=== PATIENT | female | born 1930 | race Caucasian/White ===

== ENCOUNTER 2017-01-21 22:26 | Emergency (ER) | payer MEDICARE, OTHER ==
[~2017-01-21] VITALS: Ht 154.9 cm; Wt 63.6 kg
[2017-01-21 22:30] VITALS: TEMP 98.7
[2017-01-21] MEDS ORDERED: CELEXA40 MG PO (22:54)
[2017-01-21] MEDS ORDERED: LIPITOR 10MG10 MG PO (22:54)
[2017-01-21] MEDS ORDERED: PLAVIX 75MG TAB75 MG PO (22:55)
[2017-01-21] MEDS ORDERED: FOLIC ACID 11 MG/TA1 PO (22:56)
[2017-01-21] MEDS ORDERED: FLONASEALLERGY (22:56)
[2017-01-21] MEDS ORDERED: ATROVENT INHALE14 GM (22:57)
[2017-01-21] MEDS ORDERED: METHOTREXATE50/2 (22:59)
[2017-01-21] MEDS ORDERED: TOPROL XL 25MG25 MG PO (22:59)
[2017-01-21] MEDS ORDERED: REMICADE V100 MG/VIA (23:00)
[2017-01-21] MEDS ORDERED: RESTASIS 60VL (23:00)
[2017-01-21] MEDS ORDERED: DESYREL 50MG50 MG PO (23:01)
[2017-01-21] MEDS ORDERED: ASPIRIN E.C. 8181 MG PO (23:01)
[2017-01-21] MEDS ORDERED: AZULFIDINE ENT500 MG PO (23:01)
[2017-01-21] MEDS ORDERED: CITRACAL + D CA1 TAB PO (23:02)
[2017-01-21] MEDS ORDERED: ZYRTEC 10MG10 MG PO (23:02)
[2017-01-21] MEDS ORDERED: MULTI VITAMINS1 TAB PO (23:03)
[2017-01-21] MEDS ORDERED: FLORASTOR250 MG PO (23:03)
[2017-01-21] MEDS ORDERED: THE MEDICINE S200 M2 PO (23:03)
[2017-01-21] MEDS ORDERED: VITAMIN D31000 IU PO (23:04)
[2017-01-21] MEDS ORDERED: OCUVITE1 TA1 PO (23:04)
[2017-01-22] MEDS ORDERED: NORCO 325 MG-51 TAB PO (00:09)
[2017-01-22 00:30] VITALS: BP 132/62; PULSE 64
== END 2017-01-22 00:30 | disposition home or self-care (01) ==
LOC: COL.ER 22:26
DX: S62.307A Unspecified fracture of fifth metacarpal bone, left hand, initial encounter for closed fracture (principal); S09.90XA Unspecified injury of head, initial encounter; S19.9XXA Unspecified injury of neck, initial encounter; S70.02XA Contusion of left hip, initial encounter; I48.91 Unspecified atrial fibrillation; W18.09XA Striking against other object with subsequent fall, initial encounter; Y92.009 Unspecified place in unspecified non-institutional (private) residence as the place of occurrence of the external cause; Z91.81 History of falling; Z79.02 Long term (current) use of antithrombotics/antiplatelets

== ENCOUNTER 2018-08-03 15:04 | Inpatient (IN) | payer MEDICARE, OTHER ==
[~2018-08-03] VITALS: Ht 152.4 cm; Wt 69.7 kg
[~2018-08-03 15:04] MED LIST: ASPIRIN E.C. 8181 MG PO; ATROVENTNS0.03% NS; AZULFIDINE ENT500 MG PO; CELEXA40 MG PO; CITRACAL + D CA1 TAB PO; DESYREL 50MG50 MG PO; FLONASEALLERGY IH; FLORASTOR250 MG PO; FOLIC ACID 11 MG/TA1 PO; LIPITOR 10MG10 MG PO; METHOTREXATE50/2; MULTI VITAMINS1 TAB PO; NORCO 325 MG-51 TAB PO; OCUVITE1 TA1 PO; PLAVIX 75MG TAB75 MG PO; REMICADE V100 MG/VIA; RESTASIS 60VL OP; THE MEDICINE S200 M2 PO; TOPROL XL 25MG25 MG PO; VITAMIN D31000 IU PO; ZYRTEC 10MG10 MG PO
[2018-08-03] MEDS ORDERED: ERGOCALCIFER50000 IU PO (16:48)
[2018-08-03] MEDS ORDERED: AZULFIDINE ENT500 MG PO (16:51)
[2018-08-03 17:03] LABS: PROTHROMBIN TIME 11.3 SECONDS (9.7-12.8)
[2018-08-03 17:05] LABS: BILIRUBIN,TOTAL 0.7 mg/dL (0.0-1.0); CALCIUM 8.8 mg/dL (8.4-10.2); CREATININE, serum 0.89 mg/dL (0.52-1.25); PARTIAL THROMBOPLASTIN TIME 29.9 SECONDS (26.0-37.0); POTASSIUM 4.4 mmol/L (3.4-5.0); TOTAL PROTEIN 7.2 gm/dL (6.4-8.2)
[2018-08-03 17:10] LABS: BASO % 0.4 % (0.0-2.0); EOS # 0.1 (0.0-0.7); EOS % 1.2 % (0-4.0); GRAN # 4.4 (1.4-6.5); GRAN % 51.3 % (42.2-75.2); HEMOGLOBIN 11.7 g/dl (12.5-16.0); LYMPH # 3.5 (1.2-3.4); LYMPH % 41.3 % (20.0-51.0); MEAN CELL VOLUME 111 fl (80.0-100.0); MEAN CORPUSCULAR HEMOGLOBIN 41 pg (27.0-31.0); MEAN CORPUSCULAR HGB CONC 37 g/dl (33.0-37.0); MEAN PLATELET VOLUME 9.6 fl (7.4-10.4); MONO # 0.5 (0.1-0.6); MONO % 5.3 % (1.7-9.3); PLATELET COUNT 136 K/mm3 (130-400); RED BLOOD COUNT 2.86 M/mm3 (4.10-5.30); REDCELL DISTRIBUTION WIDTH-CV 14.6 % (11.5-14.5)
[2018-08-03 17:14] LABS: HEMATOCRIT 31.6 % (37.0-47.0)
[2018-08-03 18:26] LABS: COLLECTION METHOD CATHETER
[2018-08-03 18:37] LABS: MUCOUS Present /lpf; PH 5 (5-8); SQUAMOUS EPITHELIAL None Seen /hpf; URINE APPEARANCE Clear; URINE BACTERIA None Seen /hpf; URINE BILIRUBIN Negative (NEGATIVE); URINE BLOOD 1+ (NEGATIVE); URINE COLOR Yellow; URINE GLUCOSE Negative (NEGATIVE); URINE KETONE Trace (NEGATIVE); URINE LEUKOCYTE ESTERASE Negative (NEGATIVE); URINE NITRATE Negative (NEGATIVE); URINE PROTEIN(semi-quant) 2+ (NEGATIVE); URINE UROBILINOGEN Negative (NEGATIVE)
[2018-08-03 19:35] VITALS: BP 138/61; PULSE 81; TEMP 99.2
[2018-08-03 19:39] VITALS: BP 138/61; PULSE 81; TEMP 99.2
[2018-08-04] VITALS (11 sets, daily range): BP systolic 11–139; BP diastolic 34–64; PULSE 74–87; TEMP 97.8–98.5
[2018-08-04 08:03] LABS: HEMOGLOBIN 10.1 g/dl (12.5-16.0)
[2018-08-04 08:04] LABS: HEMATOCRIT 26.3 % (37.0-47.0)
[2018-08-05 03:55] VITALS: BP 117/99; PULSE 76; TEMP 97.6
[2018-08-05 06:56] LABS: HEMATOCRIT 19.2 % (37.0-47.0); HEMOGLOBIN 8.8 g/dl (12.5-16.0)
[2018-08-05 06:59] LABS: CALCIUM 7.8 mg/dL (8.4-10.2); CREATININE, serum 0.93 mg/dL (0.52-1.25); POTASSIUM 4.5 mmol/L (3.4-5.0)
[2018-08-05 09:22] VITALS: BP 110/40; PULSE 69; TEMP 97.9
[2018-08-05 11:58] VITALS: BP 110/44; PULSE 80; TEMP 98.7
[2018-08-05 16:54] VITALS: BP 104/47; PULSE 83; TEMP 98.4
[2018-08-05 17:00] VITALS: BP 101/44; BP 112/44; PULSE 89; PULSE 94
[2018-08-05 19:40] VITALS: BP 131/48; PULSE 85; TEMP 99.4
[2018-08-06 03:35] VITALS: BP 114/45; PULSE 82; TEMP 98.2
[2018-08-06 06:18] LABS: BILIRUBIN,TOTAL 0.5 mg/dL (0.0-1.0); CALCIUM 8.4 mg/dL (8.4-10.2); CREATININE, serum 0.95 mg/dL (0.52-1.25); POTASSIUM 4.9 mmol/L (3.4-5.0); TOTAL PROTEIN 5.7 gm/dL (6.4-8.2)
[2018-08-06 06:23] LABS: BASO % 0.4 % (0.0-2.0); EOS # 0.6 (0.0-0.7); GRAN # 3.7 (1.4-6.5); GRAN % 45.3 % (42.2-75.2); LYMPH # 3.1 (1.2-3.4); MEAN CELL VOLUME 110 fl (80.0-100.0); MEAN CORPUSCULAR HGB CONC 36 g/dl (33.0-37.0); MEAN PLATELET VOLUME 10.5 fl (7.4-10.4); MONO # 0.7 (0.1-0.6); MONO % 9.1 % (1.7-9.3); PLATELET COUNT 83 K/mm3 (130-400); RED BLOOD COUNT 2.08 M/mm3 (4.10-5.30); REDCELL DISTRIBUTION WIDTH-CV 13.6 % (11.5-14.5)
[2018-08-06 06:25] LABS: HEMATOCRIT 22.9 % (37.0-47.0); HEMOGLOBIN 8.2 g/dl (12.5-16.0); MEAN CORPUSCULAR HEMOGLOBIN 39 pg (27.0-31.0)
[2018-08-06 08:59] VITALS: BP 120/57; PULSE 70; TEMP 97.9
[2018-08-06 13:41] VITALS: BP 114/45; PULSE 81; TEMP 98.5
[2018-08-06 17:35] VITALS: BP 92/44; PULSE 66; TEMP 98
[2018-08-06 17:50] LABS: TOTAL PROTEIN 5.8 gm/dL (6.4-8.2)
[2018-08-06 18:08] LABS: BILIRUBIN UNCONJUGATED 0.3 mg/dL (0.0-1.1); BILIRUBIN,DIRECT 0.2 mg/dL (0.0-0.4); BILIRUBIN,TOTAL 0.5 mg/dL (0.0-1.0)
[2018-08-06 18:21] LABS: BASO % 0.3 % (0.0-2.0); EOS # 0.6 (0.0-0.7); EOS % 6.6 % (0-4.0); GRAN # 3.7 (1.4-6.5); GRAN % 40.4 % (42.2-75.2); HEMATOCRIT 23.4 % (37.0-47.0); HEMOGLOBIN 8.9 g/dl (12.5-16.0); LYMPH % 43.6 % (20.0-51.0); MEAN CELL VOLUME 108 fl (80.0-100.0); MEAN CORPUSCULAR HEMOGLOBIN 41 pg (27.0-31.0); MEAN CORPUSCULAR HGB CONC 38 g/dl (33.0-37.0); MEAN PLATELET VOLUME 10.5 fl (7.4-10.4); MONO # 0.8 (0.1-0.6); MONO % 8.8 % (1.7-9.3); PLATELET COUNT 114 K/mm3 (130-400); RED BLOOD COUNT 2.16 M/mm3 (4.10-5.30)
[2018-08-06 18:23] LABS: INR 0.9 (0.8-3.0); PROTHROMBIN TIME 10.7 SECONDS (9.7-12.8)
[2018-08-06 18:25] LABS: PARTIAL THROMBOPLASTIN TIME 26.4 SECONDS (26.0-37.0)
[2018-08-06 20:20] VITALS: BP 118/46; PULSE 86; TEMP 99.6
[2018-08-07] VITALS (9 sets, daily range): BP systolic 105–141; BP diastolic 43–89; PULSE 68–92; TEMP 97.8–98.9
[2018-08-07 07:21] LABS: BASO % 0.6 % (0.0-2.0); EOS # 0.5 (0.0-0.7); EOS % 6.7 % (0-4.0); GRAN # 2.6 (1.4-6.5); LYMPH # 3.3 (1.2-3.4); MEAN CELL VOLUME 107 fl (80.0-100.0); MEAN CORPUSCULAR HGB CONC 34 g/dl (33.0-37.0); MEAN PLATELET VOLUME 10.4 fl (7.4-10.4); MONO # 0.7 (0.1-0.6); MONO % 10.3 % (1.7-9.3); PLATELET COUNT 103 K/mm3 (130-400); RED BLOOD COUNT 2.17 M/mm3 (4.10-5.30); REDCELL DISTRIBUTION WIDTH-CV 13.3 % (11.5-14.5)
[2018-08-07 07:22] LABS: HEMATOCRIT 23.2 % (37.0-47.0); HEMOGLOBIN 7.8 g/dl (12.5-16.0); MEAN CORPUSCULAR HEMOGLOBIN 36 pg (27.0-31.0)
[2018-08-07 07:25] LABS: ALBUMIN 2.8 gm/dL (3.5-5.0); BILIRUBIN UNCONJUGATED 0.3 mg/dL (0.0-1.1); BILIRUBIN,DIRECT 0.1 mg/dL (0.0-0.4); BILIRUBIN,TOTAL 0.4 mg/dL (0.0-1.0); CALCIUM 8.3 mg/dL (8.4-10.2); CREATININE, serum 0.81 mg/dL (0.52-1.25); POTASSIUM 4.4 mmol/L (3.4-5.0); TOTAL PROTEIN 5.5 gm/dL (6.4-8.2)
[2018-08-08 04:30] VITALS: BP 112/46; PULSE 77; TEMP 97.6
[2018-08-08 06:27] LABS: CALCIUM 8.5 mg/dL (8.4-10.2); CREATININE, serum 0.78 mg/dL (0.52-1.25); POTASSIUM 4.4 mmol/L (3.4-5.0)
[2018-08-08 07:13] LABS: BASO % 0.5 % (0.0-2.0); EOS # 0.5 (0.0-0.7); EOS % 5.7 % (0-4.0); GRAN # 2.7 (1.4-6.5); GRAN % 33.6 % (42.2-75.2); LYMPH # 3.9 (1.2-3.4); LYMPH % 48.4 % (20.0-51.0); MEAN CORPUSCULAR HGB CONC 33 g/dl (33.0-37.0); MEAN PLATELET VOLUME 10.3 fl (7.4-10.4); MONO # 0.9 (0.1-0.6); MONO % 11.4 % (1.7-9.3); PLATELET COUNT 130 K/mm3 (130-400); REDCELL DISTRIBUTION WIDTH-CV 13.7 % (11.5-14.5)
[2018-08-08 07:14] LABS: HEMOGLOBIN 7.8 g/dl (12.5-16.0); MEAN CELL VOLUME 108 fl (80.0-100.0); MEAN CORPUSCULAR HEMOGLOBIN 35 pg (27.0-31.0)
[2018-08-08 07:15] LABS: RED BLOOD COUNT 2.22 M/mm3 (4.10-5.30)
[2018-08-08 08:05] VITALS: BP 124/62; PULSE 71; TEMP 96.2
[2018-08-08 12:22] VITALS: BP 129/39; PULSE 78; TEMP 98
[2018-08-08] MEDS ORDERED: ASPIRIN 32325 MG/TAB PO (14:07)
== END 2018-08-08 14:06 | DRG 481 ==
LOC: COL.ER 15:04 → SURG 18:19
PROVIDERS: Emergency Medicine; Hospitalist; Nurse Anesthetist, Certified Registered; Orthopaedic Surgery; Physician Assistant
PROC: 0QH636Z Insertion of Intramedullary Internal Fixation Device into Right Upper Femur, Percutaneous Approach (ICD-10-PCS; principal; 2018-08-04 08:00)
DX: S72.141A Displaced intertrochanteric fracture of right femur, initial encounter for closed fracture (principal); E87.1 Hypo-osmolality and hyponatremia; L40.50 Arthropathic psoriasis, unspecified; I48.91 Unspecified atrial fibrillation; Z85.6 Personal history of leukemia; W01.0XXA Fall on same level from slipping, tripping and stumbling without subsequent striking against object, initial encounter; M16.11 Unilateral primary osteoarthritis, right hip; S72.144A Nondisplaced intertrochanteric fracture of right femur, initial encounter for closed fracture; D63.8 Anemia in other chronic diseases classified elsewhere; D69.6 Thrombocytopenia, unspecified; F32.9 Major depressive disorder, single episode, unspecified
CPT/HCPCS: 99222-AI; 99231-AI; 99232-AI; 99233-AI; 99239; A9284; C1713; J0690; J1100; J2250; J2270; J2405; J2704; J3010; J7120

== ENCOUNTER 2018-08-08 13:28 | Inpatient (IN) | payer MEDICARE, OTHER ==
[~2018-08-08] VITALS: Ht 157.5 cm; Wt 76.1 kg
[~2018-08-08 13:28] MED LIST changes: +ERGOCALCIFER50000 IU PO
[2018-08-08] MEDS ORDERED: ASPIRIN 32325 MG/TAB PO (14:07)
[2018-08-08 15:37] VITALS: BP 135/45; PULSE 95; TEMP 98.8
[2018-08-09 06:54] VITALS: BP 150/56; PULSE 88; TEMP 98.3
[2018-08-09 15:07] VITALS: BP 121/41; PULSE 97; TEMP 97.5
[2018-08-10 06:30] VITALS: BP 121/61; PULSE 87; TEMP 97.4
[2018-08-10 07:51] LABS: ALBUMIN 3.1 gm/dL (3.5-5.0); BILIRUBIN,TOTAL 0.7 mg/dL (0.0-1.0); CALCIUM 8.4 mg/dL (8.4-10.2); CREATININE, serum 0.89 mg/dL (0.52-1.25); MAGNESIUM 1.9 mg/dL (1.6-2.3); POTASSIUM 4.2 mmol/L (3.4-5.0); TOTAL PROTEIN 5.9 gm/dL (6.4-8.2)
[2018-08-10 08:07] LABS: BASO # 0.1 (0.0-0.2); BASO % 0.7 % (0.0-2.0); EOS # 0.3 (0.0-0.7); EOS % 4.4 % (0-4.0); GRAN % 29.6 % (42.2-75.2); LYMPH # 3.6 (1.2-3.4); LYMPH % 52.4 % (20.0-51.0); MEAN CORPUSCULAR HGB CONC 34 g/dl (33.0-37.0); MEAN PLATELET VOLUME 9.9 fl (7.4-10.4); MONO # 0.9 (0.1-0.6); MONO % 12.5 % (1.7-9.3); PLATELET COUNT 188 K/mm3 (130-400); REDCELL DISTRIBUTION WIDTH-CV 14.1 % (11.5-14.5)
[2018-08-10 08:08] LABS: HEMATOCRIT 23.9 % (37.0-47.0); MEAN CELL VOLUME 106 fl (80.0-100.0); MEAN CORPUSCULAR HEMOGLOBIN 36 pg (27.0-31.0); RED BLOOD COUNT 2.25 M/mm3 (4.10-5.30)
[2018-08-10 19:38] VITALS: BP 100/79; PULSE 91; TEMP 98.4
[2018-08-11 06:14] VITALS: BP 130/51; PULSE 66; TEMP 97.7
[2018-08-11 18:00] VITALS: BP 113/65; PULSE 87; TEMP 98.2
[2018-08-12 03:59] VITALS: BP 130/40; PULSE 84; TEMP 97.4
[2018-08-12 16:07] VITALS: BP 136/63; PULSE 80; TEMP 98.6
[2018-08-13 04:19] VITALS: BP 126/86; PULSE 84; TEMP 97.4
[2018-08-13 08:34] VITALS: BP 126/50; PULSE 83
[2018-08-13 15:42] VITALS: BP 110/71; PULSE 85; TEMP 98.6
[2018-08-14 05:18] VITALS: BP 128/70; PULSE 82; TEMP 98.5
[2018-08-14 16:16] VITALS: BP 125/71; PULSE 86; TEMP 98.5
[2018-08-15 03:30] VITALS: BP 122/52; PULSE 74; TEMP 98.2
[2018-08-15 08:39] LABS: BASO % 0.3 % (0.0-2.0); EOS # 0.1 (0.0-0.7); EOS % 1.2 % (0-4.0); GRAN # 4.5 (1.4-6.5); GRAN % 44.4 % (42.2-75.2); LYMPH # 4.2 (1.2-3.4); LYMPH % 40.6 % (20.0-51.0); MEAN CELL VOLUME 110 fl (80.0-100.0); MEAN CORPUSCULAR HGB CONC 36 g/dl (33.0-37.0); MEAN PLATELET VOLUME 9.3 fl (7.4-10.4); MONO # 1.3 (0.1-0.6); MONO % 12.9 % (1.7-9.3); PLATELET COUNT 298 K/mm3 (130-400); RED BLOOD COUNT 1.82 M/mm3 (4.10-5.30); REDCELL DISTRIBUTION WIDTH-CV 15.4 % (11.5-14.5)
[2018-08-15 08:40] LABS: HEMOGLOBIN 7.1 g/dl (12.5-16.0); MEAN CORPUSCULAR HEMOGLOBIN 39 pg (27.0-31.0)
[2018-08-15 18:00] VITALS: BP 104/40; PULSE 80; TEMP 98.2
[2018-08-16 09:24] LABS: BASO % 0.3 % (0.0-2.0); EOS # 0.2 (0.0-0.7); EOS % 1.8 % (0-4.0); GRAN # 5.3 (1.4-6.5); GRAN % 46.5 % (42.2-75.2); HEMATOCRIT 20.8 % (37.0-47.0); HEMOGLOBIN 7.8 g/dl (12.5-16.0); LYMPH # 4.5 (1.2-3.4); LYMPH % 39.8 % (20.0-51.0); MEAN CELL VOLUME 112 fl (80.0-100.0); MEAN CORPUSCULAR HEMOGLOBIN 42 pg (27.0-31.0); MEAN CORPUSCULAR HGB CONC 38 g/dl (33.0-37.0); MEAN PLATELET VOLUME 9.6 fl (7.4-10.4); MONO # 1.2 (0.1-0.6); MONO % 10.6 % (1.7-9.3); PLATELET COUNT 413 K/mm3 (130-400); RED BLOOD COUNT 1.85 M/mm3 (4.10-5.30); REDCELL DISTRIBUTION WIDTH-CV 15.8 % (11.5-14.5)
[2018-08-16 18:36] VITALS: BP 138/47; PULSE 85; TEMP 98.7
[2018-08-17] VITALS (10 sets, daily range): BP systolic 118–156; BP diastolic 49–100; PULSE 80–107; TEMP 98–99
[2018-08-18 04:34] VITALS: BP 115/50; PULSE 67; TEMP 98.6
[2018-08-18 17:07] VITALS: BP 129/50; PULSE 69
[2018-08-19 04:30] VITALS: BP 100/52; PULSE 70; TEMP 98.5
[2018-08-19 17:22] VITALS: BP 100/82; PULSE 79; TEMP 98.2
[2018-08-20 04:31] VITALS: BP 129/71; PULSE 79
[2018-08-20 04:33] VITALS: BP 156/66; PULSE 82
[2018-08-20 04:56] VITALS: BP 125/74; PULSE 84; TEMP 98.5
[2018-08-20 16:22] VITALS: BP 126/62; PULSE 85; TEMP 99.2
[2018-08-21 03:24] VITALS: BP 117/56; PULSE 67; TEMP 98.2
[2018-08-21 15:23] VITALS: BP 113/67; PULSE 84; TEMP 98.6
[2018-08-22 06:47] VITALS: BP 111/71; PULSE 78; TEMP 97.6
[2018-08-22 07:06] LABS: CALCIUM 8.5 mg/dL (8.4-10.2); CREATININE, serum 0.83 mg/dL (0.52-1.25); POTASSIUM 4.7 mmol/L (3.4-5.0)
[2018-08-22 07:12] LABS: BASO % 0.6 % (0.0-2.0); EOS # 0.2 (0.0-0.7); EOS % 2.5 % (0-4.0); GRAN # 2.7 (1.4-6.5); GRAN % 37.5 % (42.2-75.2); LYMPH # 3.2 (1.2-3.4); LYMPH % 44.8 % (20.0-51.0); MEAN CELL VOLUME 116 fl (80.0-100.0); MEAN CORPUSCULAR HGB CONC 43 g/dl (33.0-37.0); MEAN PLATELET VOLUME 9.3 fl (7.4-10.4); MONO % 13.8 % (1.7-9.3); PLATELET COUNT 294 K/mm3 (130-400); REDCELL DISTRIBUTION WIDTH-CV 20.2 % (11.5-14.5)
[2018-08-22 07:16] LABS: HEMOGLOBIN 7.4 g/dl (12.5-16.0); MEAN CORPUSCULAR HEMOGLOBIN 49 pg (27.0-31.0)
[2018-08-22 07:19] LABS: HEMATOCRIT 17.4 % (37.0-47.0)
[2018-08-22 08:46] LABS: IRON,SERUM 41 ug/dL (35-150)
[2018-08-22 08:55] LABS: TOTAL IRON BINDING CAPACITY 249 ug/dL (265-497)
[2018-08-22 09:15] LABS: RETIC % 7.5 % (0.5-3.52)
[2018-08-22 09:18] LABS: RETIC # 0.14 M/mm3 (0.02-0.16)
[2018-08-22 09:21] LABS: FERRITIN 381 ng/mL (11-264)
[2018-08-22 17:07] VITALS: BP 137/61; PULSE 86; TEMP 99.4
[2018-08-22 21:38] VITALS: BP 135/60; PULSE 88
[2018-08-23 00:17] LABS: FOLATE (FOLIC ACID) 16.1 ng/mL (7.0-31.4)
[2018-08-23 05:50] VITALS: BP 122/69; PULSE 77; TEMP 97.9
[2018-08-23 18:53] VITALS: BP 141/46; PULSE 86; TEMP 99.2
[2018-08-24 05:00] VITALS: BP 112/50; PULSE 76; TEMP 98.2
[2018-08-24] MEDS ORDERED: FERROUSAL325 MG PO (08:43)
[2018-08-24] MEDS ORDERED: TYLENOL 325MG325 MG PO (08:44)
[2018-08-24] MEDS ORDERED: PROTONIX 40MG T40 MG PO (08:45)
[2018-08-24] MEDS ORDERED: NORCO 325 MG-51 TAB PO (08:47)
== END 2018-08-24 11:30 | disposition home health service (06) | DRG 560 ==
PROVIDERS: Internal Medicine; Internal Medicine Gastroenterology; Physician Assistant
PROC: 0DB68ZX Excision of Stomach, Via Natural or Artificial Opening Endoscopic, Diagnostic (ICD-10-PCS; principal; 2018-08-17 16:00)
DX: S72.141D Displaced intertrochanteric fracture of right femur, subsequent encounter for closed fracture with routine healing (principal); E87.1 Hypo-osmolality and hyponatremia; W01.10XD Fall on same level from slipping, tripping and stumbling with subsequent striking against unspecified object, subsequent encounter; L40.50 Arthropathic psoriasis, unspecified; I48.91 Unspecified atrial fibrillation; Z85.6 Personal history of leukemia; D64.9 Anemia, unspecified; D69.6 Thrombocytopenia, unspecified; F32.9 Major depressive disorder, single episode, unspecified; R13.10 Dysphagia, unspecified; K25.7 Chronic gastric ulcer without hemorrhage or perforation; K29.80 Duodenitis without bleeding
CPT/HCPCS: 99222-AI; 99232-AI; 99233-AI; 99239; J2704; J7030